=== PATIENT | female | born 1935 | race Two or more races ===

== ENCOUNTER 2025-07-16 10:49 | Emergency (ER) | payer MEDICARE ==
[~2025-07-16] VITALS: Ht 157.5 cm; Wt 54.4 kg
[2025-07-16 14:13] VITALS: BP 165/70; TEMP 98.5; O2SAT 100
== END 2025-07-16 14:14 | disposition home or self-care (01) ==
LOC: ER 10:52
DX: S09.90XA Unspecified injury of head, initial encounter (principal); M54.50 Low back pain, unspecified; I11.9 Hypertensive heart disease without heart failure; H40.9 Unspecified glaucoma; Z88.2 Allergy status to sulfonamides; W01.10XA Fall on same level from slipping, tripping and stumbling with subsequent striking against unspecified object, initial encounter; Y93.89 Activity, other specified; Y92.89 Other specified places as the place of occurrence of the external cause; Y99.8 Other external cause status
CPT/HCPCS: 70450-TC; 72125-TC